=== PATIENT | male | born 1965 | race Caucasian/White ===

== ENCOUNTER → 2016-11-24 | Outpatient (CLI) | payer OTHER | LOC: KOH-I 13:15 | DX: M25.561 Pain in right knee (principal); W19.XXXA Unspecified fall, initial encounter | CPT/HCPCS: 73564 ==

== ENCOUNTER → 2016-11-26 | Outpatient (CLI) | payer OTHER | DX: M25.561 Pain in right knee (principal); M76.51 Patellar tendinitis, right knee; W19.XXXA Unspecified fall, initial encounter; Z88.0 Allergy status to penicillin | CPT/HCPCS: 73721 ==

== ENCOUNTER → 2021-01-09 | Outpatient (CLI) | payer BC ==
[~2021-01-09] MED LIST: ASPIRIN CHEWABL81 MG PO; HYDROCHLOROTHIA25 MG PO; TESTOSTERONE INJ; ZOCOR20 MG PO
== END ==
LOC: US 10:11
DX: N60.02 Solitary cyst of left breast (principal); Z80.3 Family history of malignant neoplasm of breast
CPT/HCPCS: 76641-LT

== ENCOUNTER → 2021-02-05 | Outpatient (CLI) | payer BC | LOC: MAMO 14:12 | DX: N60.02 Solitary cyst of left breast (principal); N62 Hypertrophy of breast | CPT/HCPCS: 77066 ==

== ENCOUNTER → 2021-03-16 | Outpatient (CLI) | payer BC | LOC: US 02-20 10:00 | DX: N60.02 Solitary cyst of left breast (principal) ==